=== PATIENT | female | born 1950 | race Caucasian/White ===

== ENCOUNTER → 2017-01-21 | Day surgery (SDC) | payer MEDICARE ==
[~2017-01-21] VITALS: Ht 170.1 cm; Wt 104.3 kg
[~2017-01-21] MED LIST: ALENDRONATE SOD70 M1 PO; AMLODIPINE BESYL5 MG PO; ATENOLOL100 M1 PO; LISINOPRIL40 MG PO; MASON NATURAL1000 IU PO; TYLENOL EXTRA500 M2 PO
--- NOTE | ~2017-01-21 | O ---
[place], [place] OPERATIVE NOTE NAME: TESFAYE SCHULZ UNIT #: [id number] ROOM: DOCTOR: KAYLA MENEZES MD BIRTHDATE: [birth year] DOS: 01/21/2017 PREOPERATIVE DIAGNOSIS: Cataract, right eye. POSTOPERATIVE DIAGNOSIS: Cataract, right eye. OPERATION: Extracapsular cataract extraction by phacoemulsification with posterior chamber intraocular lens implantation, right eye. ANESTHESIA: Monitored standby. OPERATIVE FINDINGS AND PROCEDURE: 2% Xylocaine topical anesthetic gel was applied to the eye in the preop area. The patient was taken to the operating room and prepped and draped in the standard fashion for sterile intraocular surgery. A time out procedure was performed verifying correct patient, correct site and corrects lens with Sofiya Menezes M.D. The operating microscope was swung into position and the lid speculum was inserted. Using a Sarah paracentesis blade, a paracentesis was made through clear cornea. Viscoelastic was used to fill the anterior chamber. Using a metal keratome a 2.4 mm self-sealing clear corneal cataract incision was made temporally at the limbus. Using a pre-bent 25 gauge cystotome needle, a standard continuous curvilinear capsulorrhexis was performed. The anterior capsule was removed with forceps. The lens nucleus was hydrodissected and phacoemulsified in the posterior chamber. Cortical material was removed with the irrigation aspiration hand piece and the posterior capsule was then polished with a curet under irrigation. The posterior chamber and capsular bag were filled with viscoelastic. A posterior chamber intraocular lens manufactured by: [employer], Model #[id number], and 22.5 diopters in strength were then inserted into the posterior chamber and within the capsular bag using the lens cartridge and injector system. Viscoelastic was removed using the irrigation aspiration handpiece. The anterior chamber was filled with balanced salt solution through the paracentesis. Both the paracentesis site and cataract incisions were hydrated with BSS and verified to be water-tight and self-sealing. Cefuroxime 1 mg/0.1 mL was injected into the anterior chamber through the paracentesis site. The incision checked to be water-tight using a Weck-Gisele sponge. The integrity of the cataract wound and ocular tension were checked. Lid speculum and drapes were removed. The patient was transferred from the operating room to the recovery room in satisfactory condition. [place], [place] OPERATIVE NOTE NAME: TESFAYE SCHULZ UNIT #: [id number] ROOM: DOCTOR: KAYLA MENEZES MD BIRTHDATE: [birth year] KAYLA MENEZES MD CM:OPRECORD:OPERATIVE NOTE 1351 1516 KAYLA MENEZES MD 01/21/17 1516 interface
[2017-01-21 10:10] VITALS: BP 170/88
[2017-01-21 11:24] VITALS: BP 150/80
[2017-01-21 11:39] VITALS: BP 132/92
[2017-01-21 11:54] VITALS: BP 131/69
== END ==
LOC: SDC 12-29 14:45
DX: H26.9 Unspecified cataract (principal); E03.9 Hypothyroidism, unspecified; I10 Essential (primary) hypertension; K21.9 Gastro-esophageal reflux disease without esophagitis; Z87.891 Personal history of nicotine dependence; Z96.653 Presence of artificial knee joint, bilateral; Z98.890 Other specified postprocedural states; E78.00 Pure hypercholesterolemia, unspecified

== ENCOUNTER → 2017-03-04 | Day surgery (SDC) | payer MEDICARE ==
[~2017-03-04] VITALS: Ht 170.1 cm; Wt 105.2 kg
--- NOTE | ~2017-03-04 | O ---
[place], [place] OPERATIVE NOTE NAME: TESFAYE SCHULZ UNIT #: [id number] ROOM: DOCTOR: KAYLA MENEZES MD BIRTHDATE: [birth year] DOS: 03/04/2017 PREOPERATIVE DIAGNOSIS: Cataract, left eye. POSTOPERATIVE DIAGNOSIS: Cataract, left eye. OPERATION: Extracapsular cataract extraction by phacoemulsification with posterior chamber intraocular lens implantation, left eye. ANESTHESIA: Monitored standby. OPERATIVE FINDINGS AND PROCEDURE: 2% Xylocaine topical anesthetic gel was applied to the eye in the preop area. The patient was taken to the operating room and prepped and draped in the standard fashion for sterile intraocular surgery. A time out procedure was performed verifying correct patient, correct site and corrects lens with Sofiya Menezes M.D. The operating microscope was swung into position and the lid speculum was inserted. Using a Sarah paracentesis blade, a paracentesis was made through clear cornea. Viscoelastic was used to fill the anterior chamber. Using a metal keratome a 2.4 mm self-sealing clear corneal cataract incision was made temporally at the limbus. Using a pre-bent 25 gauge cystotome needle, a standard continuous curvilinear capsulorrhexis was performed. The anterior capsule was removed with forceps. The lens nucleus was hydrodissected and phacoemulsified in the posterior chamber. Cortical material was removed with the irrigation aspiration hand piece and the posterior capsule was then polished with a curet under irrigation. The posterior chamber and capsular bag were filled with viscoelastic. A posterior chamber intraocular lens manufactured by: [employer], Model #[id number], and 21.5 diopters in strength were then inserted into the posterior chamber and within the capsular bag using the lens cartridge and injector system. Viscoelastic was removed using the irrigation aspiration handpiece. The anterior chamber was filled with balanced salt solution through the paracentesis. Both the paracentesis site and cataract incisions were hydrated with BSS and verified to be water-tight and self-sealing. Cefuroxime 1 mg/1 mL was injected into the anterior chamber through the paracentesis site. The incision checked to be water-tight using a Weck-Gisele sponge. The integrity of the cataract wound and ocular tension were checked. Lid speculum and drapes were removed. The patient was transferred from the operating room to the recovery room in satisfactory condition. [place], [place] OPERATIVE NOTE NAME: TESFAYE SCHULZ UNIT #: [id number] ROOM: DOCTOR: KAYLA MENEZES MD BIRTHDATE: [birth year] KAYLA MENEZES MD CM:OPRECORD:OPERATIVE NOTE 1522 1552 KAYLA MENEZES MD 03/04/17 1552 interface
[2017-03-04 14:12] VITALS: BP 144/75
[2017-03-04 15:15] VITALS: BP 172/92
[2017-03-04 15:30] VITALS: BP 164/88
[2017-03-04 15:44] VITALS: BP 177/90
== END | disposition home or self-care (01) ==
LOC: SDC 02-27 11:00
DX: H26.9 Unspecified cataract (principal); E07.89 Other specified disorders of thyroid; I10 Essential (primary) hypertension; K21.9 Gastro-esophageal reflux disease without esophagitis; K75.9 Inflammatory liver disease, unspecified; Z98.890 Other specified postprocedural states

== ENCOUNTER 2018-01-27 09:39 | Emergency (ER) | payer MEDICARE ==
[~2018-01-27] VITALS: Ht 172.7 cm; Wt 101.2 kg
== END 2018-01-27 11:54 | disposition home or self-care (01) ==
LOC: ED 09:39
DX: S80.01XA Contusion of right knee, initial encounter (principal); M25.562 Pain in left knee; Z96.652 Presence of left artificial knee joint; Z96.651 Presence of right artificial knee joint; Z79.899 Other long term (current) drug therapy; W01.0XXA Fall on same level from slipping, tripping and stumbling without subsequent striking against object, initial encounter; Y93.89 Activity, other specified; Y92.89 Other specified places as the place of occurrence of the external cause; Y99.8 Other external cause status

== ENCOUNTER → 2019-04-01 | Outpatient (CLI) | payer MEDICARE ==
[2019-04-01 13:50] LABS: BODY FLUID WBC 34575 /uL
[2019-04-01 13:53] LABS: BF LYMPHOCYTES 2 %; BF MONOCYTES 1 %; BF NEUTROPHILS 97 %
== END | disposition home or self-care (01) ==
LOC: LAB 10:51
PROVIDERS: Orthopaedic Surgery
DX: M25.422 Effusion, left elbow (principal)

== ENCOUNTER → 2020-04-11 | Outpatient (CLI) | payer MEDICARE ==
[2020-04-11 12:21] LABS: HEMATOCRIT 41.1 % (37.0-47.0); MEAN CORPUSCULAR HGB 26.8 pg (27.0-31.0); MEAN CORPUSCULAR HGB CONC 31.1 g/dl (33.0-37.0); MEAN PLATELET VOLUME 9.2 fl (9.6-12.3); RED BLOOD COUNT 4.78 10*6/uL (4.10-5.10); RED CELL DISTRI WIDTH 14.6 % (0-14.5)
[2020-04-11 12:48] LABS: ALBUMIN 3.1 gm/dl (3.1-4.5); ALKALINE PHOSPHATASE 186 U/L (45-117); BUN 15 mg/dl (7-24); CHLORIDE 108 mmol/L (98-107); CHOLESTEROL 127 mg/dL (<200); CPK 41 U/L (26-192); CREATININE 0.97 mg/dL (0.55-1.02); HDL CHOLESTEROL 48 mg/dl (40-60); LDL CHOLESTEROL 47 mg/dL (9-159); SGOT/AST 11 IU/L (3-35); SGPT/ALT 18 U/L (12-78); SODIUM 143 mmol/L (136-145); TOTAL PROTEIN 7.4 gm/dL (6.4-8.2); TRIGLYCERIDES 159 mg/dl (<150); VLDL CHOLESTEROL 32 mg/dL (6-40)
[2020-04-11 13:24] LABS: FREE T4 0.88 ng/dl (0.76-1.46)
[2020-04-12 08:08] LABS: HEP B CORE AB, IGM Negative (Negative); HEPATITIS B SURFACE AG Negative (Negative); HEPATITIS C VIRUS ANTIBODY <0.1 s/co (0.0-0.9)
== END | disposition home or self-care (01) ==
LOC: LAB 11:51
PROVIDERS: Family Medicine; ATTEND Nurse Practitioner Family
DX: R06.02 Shortness of breath (principal); I10 Essential (primary) hypertension; R10.9 Unspecified abdominal pain; R53.83 Other fatigue; R60.0 Localized edema; Z79.899 Other long term (current) drug therapy

== ENCOUNTER 2020-04-14 03:54 | Inpatient (IN) | payer MEDICARE ==
[2020-04-14] VITALS (8 sets, daily range): BP systolic 108–135; BP diastolic 40–73
[~2020-04-14] VITALS: Ht 170.1 cm; Wt 118.5 kg
--- NOTE | 2020-04-14 04:30 | NUR ---
No opden wounds noted when pt stood up for to take blood pressure.
[2020-04-14 04:43] LABS: BASO # 0.1 10*3/uL (0.0-0.1); BASO % 0.3 % (0.0-1.0); EOS # 0.2 10*3/uL (0.0-0.4); EOS % 1.1 % (1.0-4.0); HEMATOCRIT 39.4 % (37.0-47.0); LYMPH # 1.6 10*3/uL (1.3-4.4); LYMPH % 9.4 % (27.0-41.0); MEAN CELL VOLUME 84.7 fl (81.0-99.0); MEAN CORPUSCULAR HGB 26.7 pg (27.0-31.0); MEAN CORPUSCULAR HGB CONC 31.5 g/dl (33.0-37.0); MEAN PLATELET VOLUME 9.2 fl (9.6-12.3); MONO # 1.3 10*3/uL (0.1-1.0); MONO % 7.3 % (3.0-9.0); NEUT # 14.2 10*3/uL (2.3-7.9); NEUT % 81.6 % (47.0-73.0); PLATELET COUNT AUTOMATED 422 10*3/uL (130-400); RED BLOOD COUNT 4.65 10*6/uL (4.10-5.10); RED CELL DISTRI WIDTH 14.7 % (0-14.5); WHITE BLOOD COUNT 17.5 10*3/uL (4.8-10.8)
[2020-04-14 04:54] LABS: ACT PARTIAL THROMBO TIME 28.7 SECONDS (20.0-32.1)
[2020-04-14 05:02] LABS: ALBUMIN 3.2 gm/dl (3.1-4.5); ALKALINE PHOSPHATASE 175 U/L (45-117); BUN 17 mg/dl (7-24); CHLORIDE 106 mmol/L (98-107); CREATININE 1.19 mg/dL (0.55-1.02); LIPASE 428 U/L (73-393); SGOT/AST 10 IU/L (3-35); SGPT/ALT 16 U/L (12-78); SODIUM 140 mmol/L (136-145); TOTAL PROTEIN 7.6 gm/dL (6.4-8.2)
[2020-04-14 05:03] LABS: TROPONIN I < 0.015 ng/ml (<0.045)
--- NOTE | 2020-04-14 05:07 | NUR ---
Pt states she is unable to void at this time.
--- NOTE | 2020-04-14 05:11 | NUR ---
in to see pt.
--- NOTE | 2020-04-14 05:40 | NUR ---
Pt voided small amount of yellow cloudy urine.
[2020-04-14 05:51] LABS: BILIRUBIN Negative (Negative); BLOOD Negative (Negative); CLARITY Clear (Clear); COLOR Yellow (Yellow); GLUCOSE Negative (Negative); KETONE Negative (Negative); LEUKO ESTERASE Trace (Negative); NITRITE Negative (Negative); PH 6.5 (4.5-8.0)
[2020-04-14 06:05] LABS: RBC 0-2 rbc/hpf (0-2)
[2020-04-14 06:06] LABS: HYALINE CAST 0-2
--- NOTE | 2020-04-14 06:20 | NUR ---
stated pt she is going to stay at this time.
--- NOTE | 2020-04-14 06:36 | NUR ---
Family updated on pt status at this time.
--- NOTE | 2020-04-14 06:46 | NUR ---
Pt voided small amount of yellow urine at this time and nomi care given.
--- NOTE | 2020-04-14 07:06 | NUR ---
Transfer of care to Faviola casarez
--- NOTE | 2020-04-14 07:08 | NUR ---
REPORT TAKEN BY CRIS LANDRUM.
--- NOTE | 2020-04-14 07:34 | NUR ---
PATIENT PLACED ON BED MEADOWS. TOLERATED WELL. REPOSITIONED IN BED. NO VOICED COMPLAINTS AT THIS TIME. WILL CONTINUE TO MONITOR.
--- NOTE | 2020-04-14 09:50 | NUR ---
A 70YO FEMALE, admitted to , under the services of Dr. ARTI MCLAUGHLIN,JAYDE [place] with a diagnosis of LEUKOCYTOSIS/NEAR SYNCOPE. Chief complaint is DIZZINESS AND SLIGHT NAUSEA WITH STANDING, UNSTEADY ON FEET. Patient arrived via stretcher from ER. Monitor applied. Initial assessment completed. Vital signs taken and recorded. DR. ARTI MCLAUGHLIN,JAYDE [place] notified of admission to the unit. Orders received. See assessment for past medical history, medications and allergies. Patient and/or family oriented to unit. [facility] reviewed. Clothing/patient valuable form completed. OZZY SOUZA
[2020-04-14] MEDS ORDERED: KLOR-CON M2020 ME1 PO (10:18)
[2020-04-14] MEDS ORDERED: FUROSEMIDE40 MG PO (10:18)
[2020-04-14] MEDS ORDERED: NEURONTIN300 MG PO (10:19)
[2020-04-14] MEDS ORDERED: LIPITOR20 MG PO (10:19)
[2020-04-14] MEDS ORDERED: OMEPRAZOLE20 M2 PO (10:20)
[2020-04-14] MEDS ORDERED: OMEPRAZOLE MAGN20 MG PO (10:20)
--- NOTE | 2020-04-14 13:45 | NUR ---
OBTAINED ORTHOSTATIC BLOOD PRESSURES FOLLOWS: LYING BP 123/44 PULSE 81. SITTING BP 130/62 PULSE 88. PATIENT DENIED DIZZINESS WITH SITTING ON EDGE OF THE BED. STANDING BP 118/62 PULSE 94. PATIENT REPORTS DIZZINESS WITH STANDING, UNSTEADY ON FEET.
--- NOTE | 2020-04-14 21:54 | NUR ---
TYLENOL GIVEN PER ORDER FOR DISCOMFORT PER PT. "I TAKE TYLENOL BEFORE BED FOR DISCOMFORT". SEE MAR
--- NOTE | 2020-04-14 22:50 | NUR ---
Tylenol effective for generalized discomfort per pt.
[2020-04-15] VITALS: BP 121/58
--- NOTE | 2020-04-15 01:48 | NUR ---
2424 HR chart check completed.
[2020-04-15 06:25] LABS: BASO % 0.3 % (0.0-1.0); EOS # 0.2 10*3/uL (0.0-0.4); EOS % 2.4 % (1.0-4.0); LYMPH # 1.7 10*3/uL (1.3-4.4); LYMPH % 16.4 % (27.0-41.0); MEAN CELL VOLUME 86.1 fl (81.0-99.0); MEAN CORPUSCULAR HGB 26.6 pg (27.0-31.0); MEAN CORPUSCULAR HGB CONC 30.8 g/dl (33.0-37.0); MONO # 0.8 10*3/uL (0.1-1.0); MONO % 8.1 % (3.0-9.0); NEUT # 7.3 10*3/uL (2.3-7.9); NEUT % 72.5 % (47.0-73.0); PLATELET COUNT AUTOMATED 333 10*3/uL (130-400); RED BLOOD COUNT 4.18 10*6/uL (4.10-5.10); RED CELL DISTRI WIDTH 14.9 % (0-14.5); WHITE BLOOD COUNT 10.1 10*3/uL (4.8-10.8)
[2020-04-15 06:37] LABS: BUN 12 mg/dl (7-24); CHLORIDE 110 mmol/L (98-107); CREATININE 0.92 mg/dL (0.55-1.02); POTASSIUM 4.1 mmol/L (3.5-5.1); SODIUM 142 mmol/L (136-145)
[2020-04-15 08:00] VITALS: BP 128/64
[2020-04-15 12:00] VITALS: BP 138/68
[2020-04-15 16:00] VITALS: BP 144/56
--- NOTE | 2020-04-15 19:11 | NUR ---
MEDICATED WITH PRN PO TYLENOL FOR C/O GENERALIZED BODY AND BACK PAIN.
[2020-04-15 20:00] VITALS: BP 145/65
--- NOTE | 2020-04-15 20:00 | NUR ---
Patient resting quietly with no c/o discomfort. Respirations easy and regular. Vital signs stable. No overt distress. ANABEL YAO
--- NOTE | 2020-04-15 22:00 | NUR ---
Patient resting quietly with no c/o discomfort. Respirations easy and regular. Vital signs stable. No overt distress. ANABEL YAO
--- NOTE | 2020-04-15 23:31 | NUR ---
24 HR chart check completed.
[2020-04-16] VITALS: BP 140/71
--- NOTE | 2020-04-16 04:00 | NUR ---
Patient resting quietly with no c/o discomfort. Respirations easy and regular. Vital signs stable. No overt distress. ANABEL YAO
[2020-04-16 06:44] LABS: BASO # 0.1 10*3/uL (0.0-0.1); BASO % 0.6 % (0.0-1.0); EOS # 0.3 10*3/uL (0.0-0.4); EOS % 3.2 % (1.0-4.0); HEMATOCRIT 35.7 % (37.0-47.0); LYMPH # 1.5 10*3/uL (1.3-4.4); MEAN CELL VOLUME 86.2 fl (81.0-99.0); MEAN CORPUSCULAR HGB 26.8 pg (27.0-31.0); MEAN CORPUSCULAR HGB CONC 31.1 g/dl (33.0-37.0); MEAN PLATELET VOLUME 9.1 fl (9.6-12.3); MONO # 0.6 10*3/uL (0.1-1.0); MONO % 7.2 % (3.0-9.0); NEUT % 70.8 % (47.0-73.0); PLATELET COUNT AUTOMATED 343 10*3/uL (130-400); RED BLOOD COUNT 4.14 10*6/uL (4.10-5.10); RED CELL DISTRI WIDTH 14.9 % (0-14.5); WHITE BLOOD COUNT 8.5 10*3/uL (4.8-10.8)
[2020-04-16 08:00] VITALS: BP 155/62
--- NOTE | 2020-04-16 09:00 | NUR ---
Beveling Machine Operator in to talk to patient. Patient states lives at home alone with her family checking in on her. There are 0 steps in the home. There is a wheelchair ramp. Physician: Dr. William Barahona Pharmacy: [facility] Home health services: would like [facility] on discharge Patient's level of ADLs: MINIMAL ASSIST Patient has working utilities: yes DME: walker Follow-up physician's appointment after d/c: she prefers to make her own follow up appt upon discharge Does patient want to access PORTAL?: no Discharge plan discussed with patient. She lives at home alone with her family checking in on her. She states she is independent in her ADLs and ambulates with a walker. Discussed short term rehab vs home health care services. She is agreeable to either. She would like to work with therapy first to see what they suggest. She is unsure about a rehab center d/t COVID. When provided with a list of facilities she chose [facility]. When provided with a list of agencies she chose [facility]. Discharge plan undecided at this time. CM will continue to follow. She states her daughter will provide transportation on discharge. FLORENTIN MULLIGAN
--- NOTE | 2020-04-16 09:37 | NUR ---
PHYSICAL THERAPY PT amelia received and chart reviewed. Pt on commode and requests PT to come back at a later time. Will follow and attempt to see later this date. Boris Mera SPT Rosamaria Eddy PT
[2020-04-16 12:00] VITALS: BP 143/66
--- NOTE | 2020-04-16 12:30 | NUR ---
CARGO OPERATIONS AGENT IN TO SPEAK TO PATIENT. CARGO OPERATIONS AGENT SPOKE WITH THE PATIENT. PATIENT STATED HER OF 53 YEARS THIS PAST JUNE. PATIENT BECAME TEARFUL AND STATES SHE IS STILL UNABLE TO ACCEPT THAT HE IS GONE. PATIENT REPORTS SHE IS HAVING A HARD TIME ACCEPTING HIS . PATIENT STATED THAT SHE IS RELGIOUS, BUT HAS NOT ATTENDED [facility] SINCE HIS PASSING/COVID. PATIENT STATED THAT SHE HAS BEEN WATCHING [facility] SESSIONS ON TELEVISION. PATIENT REPORTS SHE READS HER BIBLE [employer]. PATIENT STATES HER CHILDREN ARE VERY SUPPORTIVE. PATIENT REPORTS SHE HAS NOT BEEN OUT OF THE HOUSE IN SOME TIME. PATIENT STATES THAT SHE IS WILLING TO TRY DIFFERENT GRIEF SUPPORT SYSTEMS. PATIENT STATES SHE IS WILLING TO REACH OUT TO HER PARACHUTE LINE TIER FROM HER [facility]. PATIENT STATED THAT DUE TO COVID SHE HAS CONCERNS WITH IN PERSON GROUPS. PATIENT ALSO STATED THAT DURING HER HUSBANDS ILLNESSES SHE JOIN A FACEBOOK GROUP FOR SUPPORT. CARGO OPERATIONS AGENT EXPLAINED THIS CARGO OPERATIONS AGENT WOULD FIND RESOURCES ON DIFFERENT FACEBOOK SUPPORT GROUPS. CARGO OPERATIONS AGENT WILL ALSO PROVIDE THE PATIENT WITH OTHER GRIEF SUPPORT INFORMATION. PATIENT MENTIONED SHE WISHED SHE HAD HER BIBLE HERE TO READ. CARGO OPERATIONS AGENT LOCATED A BIBLE FOR THE PATIENT AND PRESENTED IT TO HER. CARGO OPERATIONS AGENT TO GET RESOURCES AND WILL PROVIDE THEM TO THE PATIENT.
--- NOTE | 2020-04-16 13:30 | NUR ---
PHYSICAL THERAPY Physical Therapy evaluation completed on 5th floor with full evaluation to follow. Recommend physical therapy per plan of care and SNF pending progress w ambulation upon discharge. Thank you for this referral. Boris Mera SPT Rosamaria Eddy PT
--- NOTE | 2020-04-16 14:58 | NUR ---
CM in to see patient with Dr. Tran. Discussed short term rehab and she is agreeable. When provided with a list of facilities she chose [facility]. She states she does not want "[place]." ditch worker notified. Explained she would need to be in the hospital 3 inpatient days for Medicare. She verbalized an understanding.
--- NOTE | 2020-04-16 15:07 | NUR ---
CITY EDITOR FAXED REFERRAL TO [facility]. WILL NEED 3RD NIGHT STAY, PT EVAL, AND COVID SWAB.
[2020-04-16 16:00] VITALS: BP 166/71
[2020-04-16 20:00] VITALS: BP 144/70
[2020-04-17] VITALS: BP 117/62
[2020-04-17 06:18] LABS: BASO % 0.5 % (0.0-1.0); EOS # 0.3 10*3/uL (0.0-0.4); EOS % 3.2 % (1.0-4.0); HEMATOCRIT 34.6 % (37.0-47.0); LYMPH # 1.5 10*3/uL (1.3-4.4); LYMPH % 17.1 % (27.0-41.0); MEAN CELL VOLUME 85.6 fl (81.0-99.0); MEAN CORPUSCULAR HGB 27.2 pg (27.0-31.0); MEAN CORPUSCULAR HGB CONC 31.8 g/dl (33.0-37.0); MEAN PLATELET VOLUME 9.2 fl (9.6-12.3); MONO # 0.7 10*3/uL (0.1-1.0); MONO % 8.2 % (3.0-9.0); NEUT # 6.1 10*3/uL (2.3-7.9); NEUT % 70.7 % (47.0-73.0); PLATELET COUNT AUTOMATED 350 10*3/uL (130-400); RED BLOOD COUNT 4.04 10*6/uL (4.10-5.10); WHITE BLOOD COUNT 8.6 10*3/uL (4.8-10.8)
--- NOTE | 2020-04-17 07:46 | NUR ---
AWAITING ACCEPTANCE. CAMBERING MACHINE OPERATOR FAXED UPDATES TO [facility].
[2020-04-17 08:00] VITALS: BP 141/62
--- NOTE | 2020-04-17 08:55 | NUR ---
PT SITTING UP AT SIDE OF BED. TOLERATED ROUTINE MED WITH NO PROBLEM. NO C/O AT THIS TIME. CALL LIGHT IN REACH. SEE SHIFT ASSESSMENT.
--- NOTE | 2020-04-17 09:00 | NUR ---
CM in to see patient. No new needs or request at this time. She is sitting on the edge of her bed. When medically stable and her 3 night Medicare stay has been completed she can be discharged to [facility]. acid conditioning worker following.
[2020-04-17 12:00] VITALS: BP 143/84
[2020-04-17 15:48] VITALS: BP 151/71
--- NOTE | 2020-04-17 15:58 | NUR ---
PHYSICAL THERAPY TREATMENT TIME: IN 1454 - OUT 1510 15 MINUTES TOTAL Patient presented to therapy in sitting in bedside chair with no chair alarm attached or present. Patient gives informed consent for treatment. Patient was identified by name and ON WRISTBAND. Patient reports mild dizziness in standing and walking. Patient STS from bedside chair with SBA. Patient ambulated with Walker and CGA for 160' x 1 with 2 episodes of mild LOB due to dizziness. Patient was left in sitting in bedside chair with call light within reach. Patient 1:1 with this DESTINATION COORDINATOR for 15 minutes total. NITHYA MARIN DESTINATION COORDINATOR
--- NOTE | 2020-04-17 16:00 | NUR ---
PT SITTING UP IN RECLINER CHAIR. RESP-EASY AND REGULAR. NO C/O AT THIS TIME. CALL LIGHT IN REACH. SEE SHIFT ASSESSMENT.
--- NOTE | 2020-04-17 18:10 | NUR ---
PT SITTING UP IN CHAIR. TOLERATED ROUTINE MED WITH NO PROBLEM. CALL LIGHT IN REACH.
[2020-04-17 20:00] VITALS: BP 139/65
--- NOTE | 2020-04-17 20:52 | NUR ---
AAOX3. HEP LOCK INTACT TO RIGHT ANTECUBITAL; SITE ASYMPTOMATIC. PT. STATES THAT HER FEET & LEGS ARE SWOLLEN. LASIX & K+ BOTH ON HOLD DUE TO PT. BEING HYPOTENSIVE. NO DISTRESS NOTED; CALL LIGHT WITHIN REACH.
--- NOTE | 2020-04-17 20:56 | NUR ---
MEDICATED WITH TYLENOL FOR C/O FOOT PAIN RATED AN 8/10.
--- NOTE | 2020-04-17 21:15 | NUR ---
RESTING IN BED WITH EYES CLOSED; VOICES NO C/O AT THIS TIME. TYLENOL GIVEN EARLIER APPARENTLY EFFECTIVE. CALL LIGHT WITHIN REACH.
--- NOTE | 2020-04-18 02:00 | NUR ---
RESTING IN BED WITH EYES CLOSED. CALL LIGHT WITHIN REACH.
--- NOTE | 2020-04-18 06:00 | NUR ---
TOOK PO MEDICATIONS WITHOUT DIFFICULTY; VOICES NO C/O AT THIS TIME. CALL LIGHT WITHIN REACH.
--- NOTE | 2020-04-18 08:50 | NUR ---
PHYSICAL THERAPY treatment time: IN 8:12 AM 20 MINUTES Patient presented to therapy in sitting in bedside chair with no chair alarm present. PATIENT REPORTS PAIN IN THE THE BILATERAL FEET 6/10. Patient reports edema in the bilateral feet. Patient gives informed consent for treatment. Patient was identified by name and on wristband. Patient uses a Wh Walker. Patient had no wt bearing restrictions. Patient performed STS from EOB with SBA. PATIENT AMBULATED 100' X 1 with Wh Walker and CGA- SBA with no LOB or other difficulty. Patient then sat in chair and performed seated bilateral LE ther ex 2 x 10 reps each in all planes of movement for strengthening the LEs IN ORDER TO IMPROVE PATIENT'S funcxtional mobility. Patient performed LAQs, marches, heel/toe raises, and hip abduction. Patient then STS again with SBA . Patient performed ambulation with WITH wh Walker and SBA for 120' x 1. Patient was left in bedside chair wit hCall light within reach ands chair alarm not present. Patient gets up to use restroom by herself throughout the day using the wheeled walker by hereself. Patient was 1:[address] [facility] [address] JUDGE for 20 minutes total. NITHYA MARIN YOUTH COURT JUDGE
--- NOTE | 2020-04-18 09:00 | NUR ---
CM in to see patient. She is sitting up in her bedside chair. Discussed short term rehab. She states she would rather go home with home health care services. Discussed her dizziness and pain and swelling in her feet. She understands but is on the fence about rehab. Explained she is doing well here at the hospital and it probably wouldn't take her very long to get back on her feet from rehab. Discussed discharge planning with Dr. Tran. Explained patient was on the fence about rehab vs home with home health. He would like to keep her another day due to her dizziness. CM will continue to follow for any discharge planning needs.
--- NOTE | 2020-04-18 11:10 | NUR ---
HEATING EQUIPMENT REPAIRER IN TO SEE PATIENT. HEATING EQUIPMENT REPAIRER PROVIDED THE PATIENT WITH RESOURCES ON GRIEVING. HEATING EQUIPMENT REPAIRER EXPLAINED THE MATERIAL TO HER. PATIENT STATED THAT "I JUST WANT TO GO TO SLEEP AND NOT WAKE UP." PATIENT STATED THAT SHE THOUGHT SHE WOULD BE OKAY WITH HER PASSING BUT NOW SHE NOTICES THAT HER GRIEF IS NOT IMPROVING. HEATING EQUIPMENT REPAIRER ASKED HER IF SHE TALKED TO DR. CHI ABOUT HER INCREASING DEPRESSION. SHE STATED NO, SHE SPOKE WITH HER NURSE WHO ENCOURAGED HER TO DO SO BUT HAD NOT. PATIENT STATED SHE WOULD BE OPEN TO SEE IF ANY MEDICATIONS WOULD HELP HER. HEATING EQUIPMENT REPAIRER EXPLAINED THAT I WOULD SPEAK WITH SENIOR INSTRUCTOR FLORENTIN. PATIENT STATED THAT HER HUSBANDS HOSPICE COMPANY REACHED OUT TO HER, HOWEVER SHE STATED SHE WAS FINE AT THE TIME. PATIENT WAS AGREEABLE TO HAVE THIS HEATING EQUIPMENT REPAIRER REACH OUT TO [facility] TO SEE WHAT RESOURCES THEY WOULD BE ABLE TO PROVIDE THE PAIENT. HEATING EQUIPMENT REPAIRER SPOKE WITH SENIOR INSTRUCTOR FLORENTIN, WHO SPOKE WITH AND A WILLIAM EUCEDA CONSULT WAS MADE. HEATING EQUIPMENT REPAIRER REACHED OUT TO [facility] AND LEFT A MESSAGE ASKING FOR A RETURN CALL. HEATING EQUIPMENT REPAIRER TO FOLLOW.
[2020-04-18 12:00] VITALS: BP 151/70
--- NOTE | 2020-04-18 12:11 | NUR ---
[facility] NOTIFIED OF CONSULT FOR DISABILITY AIDE KINSEY RE: DEPRESSION.
[2020-04-18 16:00] VITALS: BP 154/65
--- NOTE | 2020-04-18 18:34 | NUR ---
LIDOCAINE CREAM APPLIED TO FEET FOR CHRONIC PAIN.
--- NOTE | 2020-04-18 19:30 | NUR ---
REPORT RECEIVED. PT SITTING AT SIDE OF BED PLAYING ON PHONE. VOICES NO COMPLAINTS. CALL LIGHT IN REACH
[2020-04-18 20:00] VITALS: BP 159/78
--- NOTE | 2020-04-18 21:00 | NUR ---
PT PLAYING ON PHONE
--- NOTE | 2020-04-18 23:00 | NUR ---
PT LYING IN BED WATCHING TV AT THIS TIME
[2020-04-19] VITALS: BP 145/62
--- NOTE | 2020-04-19 01:00 | NUR ---
PT ASLEEP AT THIS TIME.
--- NOTE | 2020-04-19 05:30 | NUR ---
IN TO SEE PT. MEDICATIONS GIVEN. NO COMPLAINTS. CALL LIGHT IN REACH
--- NOTE | 2020-04-19 07:58 | NUR ---
PHYSICAL THERAPY TREATMENT TIME: IN 07:42 AM - OUT 07:53 AM 21 MINUTES TOTAL Patient presented to therapy supine in bed with head of bed elevated and bed alarm not on. Patient reports no pain 0/10. Patient uses a Wh Walker. Patient has no wt bearing restrictions. Patient gives informed consent. Patient was identified by name and ON WRISTBAND. Patient has L Knee that hyperextends. Patient performed supine <> sittimg on EOB with SBA. Patient sat on EOB unassisted. Patient STS <> EOB with SBA. Patient ambulated the 1st gait with Wh Walker Clsoe Supervisiom for 150' x 1. Patient ambulated the 2nd gait with Close Supervision for 200' x 1. Patient had no LOB during gait and no LOB with 180 degree turms. Patient performed seated bilateral LE ther ex 2 x10 reps each in all planes of movement including LAQs, marches, heel/toe raises and hip abduction for strengrhening the LEs in order to improve patient's functional mobility. Patient was left in sitting in bedside chair wit monica martinez within reach. Patient was 1:1 with this MARKET INVESTIGATOR for 20 minutes. NITHYA MARIN oil plant operator
[2020-04-19 08:00] VITALS: BP 144/67
--- NOTE | 2020-04-19 09:00 | NUR ---
CM in to see patient. She is currently not in her room. Will follow up at a later time.
--- NOTE | 2020-04-19 09:57 | NUR ---
Discussed discharge planning with Dr. Tran. He states patient wants to go to [facility] as she is not comfortable going home because she is not steady on her feet.
[2020-04-19] MEDS ORDERED: METOPROLOL SUCC25 M2 PO (10:35)
[2020-04-19 12:00] VITALS: BP 146/65; BP 97/55
--- NOTE | 2020-04-19 12:44 | NUR ---
CM in to see patient. She is sitting up in her bedside chair eating lunch. Discussed [facility] vs home with home health. She remains agreeable to [facility]. Awaiting Yue Alves to see patient. Asked patient if she had transportation to [facility] and she states she did not. Will ask [facility] if they have transportation available today. pattern worker notified.
--- NOTE | 2020-04-19 14:16 | NUR ---
NURSE TO NURSE TO REPORT GIVEN.
--- NOTE | 2020-04-19 14:47 | NUR ---
EFFICIENCY MINER BLASTING RECEIVED DISCHARGE ORDER. EFFICIENCY MINER BLASTING SPOKE WITH LUCITA RICE. EFFICIENCY MINER BLASTING ARRANGED FOR [facility]SPORT THE PATIENT AT 3:15PM TODAY. EFFICIENCY MINER BLASTING TO FAX DISCHARGE ORDERS TO [facility]. EFFICIENCY MINER BLASTING LEFT MESSAGE EXPLAINING DISCHARGE/TRANSPORTATION ON PATIENTS ADALBERTO ROJAS VOICE MAIL.
--- NOTE | 2020-04-19 14:55 | NUR ---
Discharge instructions reviewed with patient/family. Patient receptive and verbalizes understanding. Follow-up care arranged. Written instructions given to patient/family. DWAYNE LITTLE
== END 2020-04-19 14:58 | disposition other institution (70) | DRG 312 ==
LOC: ED 03:54 → 5E 07:12 → EDHOLD 07:12 → 5E 08:32
PROVIDERS: Emergency Medicine Emergency Medical Services; ADMIT Internal Medicine; ATTEND Internal Medicine
DX: I95.1 Orthostatic hypotension (principal); Z68.41 Body mass index [BMI] 40.0-44.9, adult; E87.6 Hypokalemia; R62.7 Adult failure to thrive; E75.6 Lipid storage disorder, unspecified; Z20.828 Contact with and (suspected) exposure to other viral communicable diseases; D72.829 Elevated white blood cell count, unspecified; E05.90 Thyrotoxicosis, unspecified without thyrotoxic crisis or storm; I10 Essential (primary) hypertension; E78.2 Mixed hyperlipidemia; E66.01 Morbid (severe) obesity due to excess calories; E86.0 Dehydration; K21.00 Gastro-esophageal reflux disease with esophagitis, without bleeding; Z79.899 Other long term (current) drug therapy

== ENCOUNTER → 2020-05-29 | Outpatient (CLI) | payer MEDICARE ==
[~2020-05-29] MED LIST changes: +FUROSEMIDE40 MG PO; +KLOR-CON M2020 ME1 PO; +LIPITOR20 MG PO; +METOPROLOL SUCC25 M2 PO; +NEURONTIN300 MG PO; +OMEPRAZOLE MAGN20 MG PO; +OMEPRAZOLE20 M2 PO
== END | disposition home or self-care (01) ==
LOC: CARD 04-24 15:00
PROVIDERS: ATTEND Family Medicine
DX: I51.7 Cardiomegaly (principal); I35.8 Other nonrheumatic aortic valve disorders; I31.3 Pericardial effusion (noninflammatory)

== ENCOUNTER → 2020-12-24 | Outpatient (CLI) | payer MEDICARE, OTHER ==
[2020-12-24 11:41] LABS: HEMATOCRIT 40.5 % (37.0-47.0); MEAN CELL VOLUME 85.1 fl (81.0-99.0); MEAN CORPUSCULAR HGB 27.1 pg (27.0-31.0); MEAN CORPUSCULAR HGB CONC 31.9 g/dl (33.0-37.0); MEAN PLATELET VOLUME 9.1 fl (9.6-12.3); RED BLOOD COUNT 4.76 10*6/uL (4.10-5.10); RED CELL DISTRI WIDTH 16.1 % (0-14.5); WHITE BLOOD COUNT 8.4 10*3/uL (4.8-10.8)
[2020-12-24 12:14] LABS: ALBUMIN 3.5 gm/dl (3.1-4.5); BUN 17 mg/dl (7-24); CHLORIDE 108 mmol/L (98-107); CHOLESTEROL 171 mg/dL (<200); CREATININE 0.94 mg/dL (0.55-1.02); POTASSIUM 4.4 mmol/L (3.5-5.1); SGOT/AST 14 IU/L (3-35); SGPT/ALT 18 U/L (12-78); SODIUM 140 mmol/L (136-145)
[2020-12-24 12:16] LABS: ALKALINE PHOSPHATASE 114 U/L (45-117); CPK 32 U/L (26-192); LDL CHOLESTEROL 81 mg/dL (9-159); TOTAL PROTEIN 7.6 gm/dL (6.4-8.2); TRIGLYCERIDES 210 mg/dl (<150)
== END | disposition home or self-care (01) ==
LOC: LAB 11:05
PROVIDERS: ATTEND Nurse Practitioner Family
DX: I10 Essential (primary) hypertension (principal); E78.00 Pure hypercholesterolemia, unspecified; E55.9 Vitamin D deficiency, unspecified

== ENCOUNTER → 2021-01-22 | Outpatient (CLI) | payer MEDICARE, OTHER | END | disposition home or self-care (01) | LOC: RAD 01-17 14:00 | PROVIDERS: ATTEND Family Medicine | DX: Z13.820 Encounter for screening for osteoporosis (principal); M81.0 Age-related osteoporosis without current pathological fracture ==

== ENCOUNTER → 2021-04-12 | Outpatient (CLI) | payer MEDICARE, OTHER ==
[2021-04-12 12:02] LABS: HEMATOCRIT 40.7 % (37.0-47.0); MEAN CELL VOLUME 85.7 fl (81.0-99.0); MEAN CORPUSCULAR HGB 26.9 pg (27.0-31.0); MEAN CORPUSCULAR HGB CONC 31.4 g/dl (33.0-37.0); MEAN PLATELET VOLUME 9.6 fl (9.6-12.3); RED BLOOD COUNT 4.75 10*6/uL (4.10-5.10); WHITE BLOOD COUNT 10.9 10*3/uL (4.8-10.8)
[2021-04-12 12:24] LABS: BUN 15 mg/dl (7-24); CHLORIDE 108 mmol/L (98-107); POTASSIUM 3.9 mmol/L (3.5-5.1); SODIUM 141 mmol/L (136-145)
[2021-04-12 12:29] LABS: ALBUMIN 3.2 gm/dl (3.1-4.5); ALKALINE PHOSPHATASE 111 U/L (45-117); CHOLESTEROL 134 mg/dL (<200); CREATININE 0.85 mg/dL (0.55-1.02); LDL CHOLESTEROL 45 mg/dL (9-159); SGOT/AST 13 IU/L (3-35); SGPT/ALT 19 U/L (12-78); TOTAL PROTEIN 7.3 gm/dL (6.4-8.2); TRIGLYCERIDES 202 mg/dl (<150)
== END | disposition home or self-care (01) ==
LOC: LAB 11:25
PROVIDERS: ATTEND Family Medicine
DX: E55.9 Vitamin D deficiency, unspecified (principal); E78.00 Pure hypercholesterolemia, unspecified; Z79.899 Other long term (current) drug therapy

== ENCOUNTER → 2021-10-24 | Outpatient (CLI) | payer MEDICARE, OTHER ==
[2021-10-24 17:30] LABS: HEMATOCRIT 38.4 % (37.0-47.0); MEAN CELL VOLUME 83.3 fl (81.0-99.0); MEAN CORPUSCULAR HGB 26.7 pg (27.0-31.0); MEAN PLATELET VOLUME 8.9 fl (9.6-12.3); RED BLOOD COUNT 4.61 10*6/uL (4.10-5.10); RED CELL DISTRI WIDTH 16.1 % (0-14.5); WHITE BLOOD COUNT 10.4 10*3/uL (4.8-10.8)
[2021-10-24 17:58] LABS: ALKALINE PHOSPHATASE 112 U/L (45-117); BUN 15 mg/dl (7-24); CHLORIDE 109 mmol/L (98-107); CHOLESTEROL 142 mg/dL (<200); CPK 51 U/L (26-192); CREATININE 0.96 mg/dL (0.55-1.02); LDL CHOLESTEROL 59 mg/dL (9-159); SGOT/AST 11 IU/L (3-35); SGPT/ALT 19 U/L (12-78); SODIUM 143 mmol/L (136-145); TOTAL PROTEIN 7.5 gm/dL (6.4-8.2); TRIGLYCERIDES 192 mg/dl (<150)
== END | disposition home or self-care (01) ==
LOC: LAB 17:07
PROVIDERS: ATTEND Family Medicine
DX: E11.9 Type 2 diabetes mellitus without complications (principal); E78.00 Pure hypercholesterolemia, unspecified; E55.9 Vitamin D deficiency, unspecified

== ENCOUNTER → 2022-08-12 | Outpatient (CLI) | payer MEDICARE, OTHER | END | disposition home or self-care (01) | LOC: RAD 17:22 | PROVIDERS: ATTEND Nurse Practitioner | DX: M47.812 Spondylosis without myelopathy or radiculopathy, cervical region (principal); M48.02 Spinal stenosis, cervical region; M46.02 Spinal enthesopathy, cervical region ==

== ENCOUNTER → 2022-08-27 | Outpatient (CLI) | payer MEDICARE, OTHER | END | disposition home or self-care (01) | LOC: MAMMO 00:32 | PROVIDERS: ATTEND Nurse Practitioner | DX: Z12.31 Encounter for screening mammogram for malignant neoplasm of breast (principal); N64.9 Disorder of breast, unspecified ==

== ENCOUNTER → 2022-10-08 | Outpatient (CLI) | payer MEDICARE, OTHER | END | disposition home or self-care (01) | LOC: ORTHO 01:13 | PROVIDERS: ATTEND Orthopaedic Surgery | DX: M25.562 Pain in left knee (principal); Z96.652 Presence of left artificial knee joint ==

== ENCOUNTER → 2022-10-20 | Outpatient (CLI) | payer MEDICARE, OTHER | END | disposition home or self-care (01) | LOC: NM 10-17 10:00 | PROVIDERS: ATTEND Orthopaedic Surgery | DX: T84.093A Other mechanical complication of internal left knee prosthesis, initial encounter (principal); Y84.9 Medical procedure, unspecified as the cause of abnormal reaction of the patient, or of later complication, without mention of misadventure at the time of the procedure; Y92.89 Other specified places as the place of occurrence of the external cause ==

== ENCOUNTER → 2022-11-14 | Outpatient (CLI) | payer MEDICARE, OTHER ==
[2022-11-14 11:50] LABS: BASO # 0.1 10*3/uL (0.0-0.1); BASO % 0.7 % (0.0-1.0); EOS # 0.2 10*3/uL (0.0-0.4); LYMPH # 2.1 10*3/uL (1.3-4.4); LYMPH % 17.3 % (27.0-41.0); MEAN CELL VOLUME 80.3 fl (81.0-99.0); MEAN CORPUSCULAR HGB 25.5 pg (27.0-31.0); MEAN CORPUSCULAR HGB CONC 31.8 g/dl (33.0-37.0); MONO # 0.8 10*3/uL (0.1-1.0); MONO % 6.6 % (3.0-9.0); NEUT # 8.8 10*3/uL (2.3-7.9); NEUT % 73.2 % (47.0-73.0); PLATELET COUNT AUTOMATED 406 10*3/uL (130-400); RED BLOOD COUNT 4.98 10*6/uL (4.10-5.10); WHITE BLOOD COUNT 12.1 10*3/uL (4.8-10.8)
== END | disposition home or self-care (01) ==
LOC: LAB 11:34
PROVIDERS: ATTEND Orthopaedic Surgery
DX: T84.54XA Infection and inflammatory reaction due to internal left knee prosthesis, initial encounter (principal)

== ENCOUNTER → 2023-04-30 | Day surgery (SDC) | payer MEDICARE, OTHER ==
[2023-04-27 16:12] LABS: BASO # 0.1 10*3/uL (0.0-0.1); BASO % 0.9 % (0.0-1.0); EOS # 0.3 10*3/uL (0.0-0.4); EOS % 2.2 % (1.0-4.0); HEMATOCRIT 39.4 % (37.0-47.0); LYMPH # 2.8 10*3/uL (1.3-4.4); LYMPH % 21.4 % (27.0-41.0); MEAN CELL VOLUME 79.1 fl (81.0-99.0); MEAN CORPUSCULAR HGB 23.9 pg (27.0-31.0); MEAN CORPUSCULAR HGB CONC 30.2 g/dl (33.0-37.0); MEAN PLATELET VOLUME 9.3 fl (9.6-12.3); MONO % 7.4 % (3.0-9.0); NEUT # 8.8 10*3/uL (2.3-7.9); NEUT % 67.8 % (47.0-73.0); PLATELET COUNT AUTOMATED 444 10*3/uL (130-400); RED BLOOD COUNT 4.98 10*6/uL (4.10-5.10); RED CELL DISTRI WIDTH 17.2 % (0-14.5)
[2023-04-27 16:13] LABS: BILIRUBIN Negative (Negative); BLOOD Negative (Negative); CLARITY Clear (Clear); COLOR Yellow (Yellow); GLUCOSE Negative (Negative); KETONE Negative (Negative); LEUKO ESTERASE 1+ (Negative); NITRITE Negative (Negative); UROBILINOGEN 0.2 E.U./dl (0.0-1.0)
[2023-04-27 16:33] LABS: BACTERIA 1+; WBC 16-20 wbc/hpf (0-5)
[2023-04-27 16:36] LABS: ALKALINE PHOSPHATASE 126 U/L (46-116); BUN 14 mg/dl (9-23); CHLORIDE 105 mmol/L (98-107); POTASSIUM 3.6 mmol/L (3.4-5.1); SGPT/ALT 8 U/L (5-49); TOTAL PROTEIN 7.6 gm/dL (6.0-8.0)
[~2023-04-30] VITALS: Ht 170.1 cm; Wt 113.4 kg
[~2023-04-30] MED LIST changes: +CLARITIN10 MG PO; +CYMBALTA60 MG PO; +LEVOTHYROXINE112 MC1 PO; +LISINOPRIL30 MG PO; +MACRODANTIN100 M1 PO; +OXYBUTYNIN5 MG PO; +POTASSIUM99 M7 PO; +PROTONIX TR40 MG PO; +VITAMIN D325 MCG PO
== END | disposition home or self-care (01) ==
LOC: SDC 04-27 14:00
PROVIDERS: ATTEND Orthopaedic Surgery
DX: T84.093A Other mechanical complication of internal left knee prosthesis, initial encounter (principal); Z53.8 Procedure and treatment not carried out for other reasons; I25.2 Old myocardial infarction; I50.9 Heart failure, unspecified; X58.XXXA Exposure to other specified factors, initial encounter

== ENCOUNTER → 2023-07-27 | Outpatient (CLI) | payer MEDICARE, OTHER | LOC: CT 01:08 | PROVIDERS: ATTEND Nurse Practitioner | DX: N28.1 Cyst of kidney, acquired (principal); R10.13 Epigastric pain; Z90.49 Acquired absence of other specified parts of digestive tract ==

== ENCOUNTER → 2023-09-14 | Outpatient (CLI) | payer MEDICARE, OTHER | END | disposition home or self-care (01) | LOC: CT 01:23 | PROVIDERS: ATTEND Nurse Practitioner | DX: R91.1 Solitary pulmonary nodule (principal); J98.11 Atelectasis; F17.210 Nicotine dependence, cigarettes, uncomplicated; M19.012 Primary osteoarthritis, left shoulder; M19.011 Primary osteoarthritis, right shoulder; M25.412 Effusion, left shoulder; Z90.49 Acquired absence of other specified parts of digestive tract ==

== ENCOUNTER → 2023-10-19 | Outpatient (CLI) | payer MEDICARE, OTHER | END | disposition home or self-care (01) | LOC: RAD 11:06 | PROVIDERS: ATTEND Orthopaedic Surgery | DX: M25.562 Pain in left knee (principal) ==

== ENCOUNTER → 2023-11-17 | Outpatient (CLI) | payer MEDICARE, OTHER ==
[~2023-11-17] VITALS: Ht 162.5 cm; Wt 114.3 kg
[~2023-11-17] MED LIST changes: +Lactated Ringer's Solution 1,000 ML IV SCH; +Midazolam Hydrochloride 2 MG/2 ML VIAL IV ONE; +TOPROL XL25 MG PO; +TRANEXAMIC ACID IN NACL,ISO-OS 100 ML IV ONE; +ceFAZolin sodium 2GM/20ML IV ONE
[2023-11-17 13:56] LABS: BASO # 0.1 10*3/uL (0.0-0.1); BASO % 0.7 % (0.0-1.0); EOS # 0.4 10*3/uL (0.0-0.4); EOS % 3.2 % (1.0-4.0); HEMATOCRIT 37.7 % (37.0-47.0); LYMPH # 2.4 10*3/uL (1.3-4.4); LYMPH % 17.6 % (27.0-41.0); MEAN CELL VOLUME 79.9 fl (81.0-99.0); MEAN CORPUSCULAR HGB 24.2 pg (27.0-31.0); MEAN CORPUSCULAR HGB CONC 30.2 g/dl (33.0-37.0); MEAN PLATELET VOLUME 9.1 fl (9.6-12.3); MONO # 0.8 10*3/uL (0.1-1.0); MONO % 6.1 % (3.0-9.0); NEUT # 9.7 10*3/uL (2.3-7.9); PLATELET COUNT AUTOMATED 450 10*3/uL (130-400); RED BLOOD COUNT 4.72 10*6/uL (4.10-5.10); RED CELL DISTRI WIDTH 19.1 % (0-14.5); WHITE BLOOD COUNT 13.5 10*3/uL (4.8-10.8)
[2023-11-17 14:00] LABS: BILIRUBIN Negative (Negative); BLOOD Negative (Negative); CLARITY Cloudy (Clear); COLOR Yellow (Yellow); GLUCOSE Negative (Negative); KETONE Negative (Negative); LEUKO ESTERASE 3+ (Negative); NITRITE Positive (Negative); PH 7.5 (4.5-8.0); SPECIFIC GRAVITY 1.015 (1.001-1.030); UROBILINOGEN 0.2 E.U./dl (0.0-1.0)
[2023-11-17 14:23] LABS: ALKALINE PHOSPHATASE 112 U/L (46-116); BUN 14 mg/dl (9-23); CHLORIDE 104 mmol/L (98-107); SGPT/ALT 8 U/L (5-49); TOTAL PROTEIN 7.1 gm/dL (6.0-8.0)
[2023-11-17 14:49] LABS: BACTERIA 2+; WBC 51-100 wbc/hpf (0-5)
[2023-11-19 07:34] LABS: BILIRUBIN Negative (Negative); BLOOD Negative (Negative); CLARITY Cloudy (Clear); COLOR Yellow (Yellow); GLUCOSE Negative (Negative); KETONE Negative (Negative); LEUKO ESTERASE 2+ (Negative); NITRITE Negative (Negative); PH 7.5 (4.5-8.0); RBC 0-2 rbc/hpf (0-2); UROBILINOGEN 0.2 E.U./dl (0.0-1.0)
== END ==
LOC: SDC 11-12 08:30 → LAB 01:52 → SDC 13:15 → EDSTATUS 11-19 13:15
PROVIDERS: ATTEND Orthopaedic Surgery
DX: Z01.818 Encounter for other preprocedural examination (principal); T84.093A Other mechanical complication of internal left knee prosthesis, initial encounter; X58.XXXA Exposure to other specified factors, initial encounter

== ENCOUNTER → 2024-03-31 | Outpatient (CLI) | payer MEDICARE, OTHER ==
[~2024-03-31] MED LIST changes: -Lactated Ringer's Solution 1,000 ML IV SCH; -Midazolam Hydrochloride 2 MG/2 ML VIAL IV ONE; -TRANEXAMIC ACID IN NACL,ISO-OS 100 ML IV ONE; -ceFAZolin sodium 2GM/20ML IV ONE
== END | disposition home or self-care (01) ==
LOC: RAD 13:38
PROVIDERS: ATTEND Nurse Practitioner
DX: R06.02 Shortness of breath (principal); R05.9 Cough, unspecified

== ENCOUNTER 2024-05-10 04:56 | Inpatient (IN) | payer MEDICARE, OTHER ==
[2024-05-06 15:11] LABS: BASO # 0.1 10*3/uL (0.0-0.1); BASO % 0.5 % (0.0-1.0); EOS # 0.2 10*3/uL (0.0-0.4); EOS % 1.5 % (1.0-4.0); HEMATOCRIT 44.1 % (37.0-47.0); MEAN CELL VOLUME 89.6 fl (81.0-99.0); MEAN CORPUSCULAR HGB 28.5 pg (27.0-31.0); MEAN CORPUSCULAR HGB CONC 31.7 g/dl (33.0-37.0); MEAN PLATELET VOLUME 9.5 fl (9.6-12.3); MONO # 0.8 10*3/uL (0.1-1.0); MONO % 6.4 % (3.0-9.0); NEUT # 8.2 10*3/uL (2.3-7.9); PLATELET COUNT AUTOMATED 387 10*3/uL (130-400); RED BLOOD COUNT 4.92 10*6/uL (4.10-5.10); RED CELL DISTRI WIDTH 15.9 % (0-14.5); WHITE BLOOD COUNT 11.9 10*3/uL (4.8-10.8)
[2024-05-06 15:20] LABS: BILIRUBIN Negative (Negative); BLOOD Negative (Negative); CLARITY Clear (Clear); COLOR Yellow (Yellow); GLUCOSE Negative (Negative); KETONE Trace (Negative); LEUKO ESTERASE Negative (Negative); NITRITE Positive (Negative); PH 5.5 (4.5-8.0)
[2024-05-06 15:33] LABS: ALKALINE PHOSPHATASE 120 U/L (46-116); BUN 11 mg/dl (9-23); CHLORIDE 105 mmol/L (98-107); POTASSIUM 3.9 mmol/L (3.4-5.1); SGPT/ALT 10 U/L (5-49)
[2024-05-06 15:35] LABS: BACTERIA 4+
[2024-05-10] VITALS (9 sets, daily range): BP systolic 125–152; BP diastolic 58–79
[~2024-05-10] VITALS: Ht 170.1 cm; Wt 120.2 kg
[2024-05-10] MEDS ORDERED: Lactated Ringer's Solution 1,000 ML IV ONE ×3 (10:05→12:14)
[2024-05-10] MEDS ORDERED: Midazolam Hydrochloride 2 MG/2 ML VIAL IV ONE (10:05)
[2024-05-10] MEDS ORDERED: VANCOMYCIN/WATER FOR INJ (PEG) 150 ML IV ONE (10:05)
[2024-05-10] MEDS ORDERED: TRANEXAMIC ACID IN NACL,ISO-OS 100 ML IV ONE ×2 (10:05→10:36)
[2024-05-10] MEDS ORDERED: Ondansetron Hydrochloride 4 MG/2 ML VIAL IV PRN (10:10)
[2024-05-10] MEDS ORDERED: Acetaminophen/Oxycodone 5 MG/325 MG TABLET PO PRN (10:10)
[2024-05-10] MEDS ORDERED: MORPHINE Sulfate 4 MG IV PRN (10:15)
[2024-05-10] MEDS ORDERED: Midazolam Hydrochloride 2 MG/2 ML VIAL ONE (10:18)
[2024-05-10] MEDS ORDERED: Ropivacaine Hydrochloride 5 MG/ML 20 ML AMP IJ ONE (10:24)
[2024-05-10] MEDS ORDERED: DEXAMETHASONE SODIUM PHOSP/PRESERVATIVE FREE 10 MG/ML VIAL ONE (10:24)
[2024-05-10] MEDS ORDERED: MORPHINE Sulfate 2 MG/ML SYR IV PRN ×2 (10:40→13:35)
[2024-05-10] MEDS ORDERED: Bupivacaine Hydrochloride/Ep2 30 ML VIAL ONE (10:41)
[2024-05-10] MEDS ORDERED: ACETAMINOPHEN 100 ML IV ONE (11:04)
[2024-05-10] MEDS ORDERED: ePHEDrine Sulfate 25 MG/5 ML SYRINGE IV ONE (13:40)
[2024-05-10] MEDS ORDERED: Ondansetron Hydrochloride 4 MG/2 ML VIAL IV ONE (13:40)
[2024-05-10] MEDS ORDERED: SEVOFLURANE 250 ML BOT INH ONE (13:40)
[2024-05-10] MEDS ORDERED: Dexamethasone Sodium Phospha 4 MG/ML VIAL IV ONE (13:40)
[2024-05-10] MEDS ORDERED: Ketorolac Tromethamine 30 MG/ML VIAL IV ONE (13:40)
[2024-05-10] MEDS ORDERED: fentaNYL CITRATE 100 MCG/2 ML VIAL IV ONE (13:40)
[2024-05-10] MEDS ORDERED: Lidocaine Hydrochloride 5 ML VIAL IV ONE (13:40)
[2024-05-10] MEDS ORDERED: ROCURONIUM BROMIDE 50 MG/5 ML SYRINGE IV ONE (13:40)
[2024-05-10] MEDS ORDERED: PROPOFOL 200 MG/20 ML VIAL IV ONE (13:40)
[2024-05-10] MEDS ORDERED: Ceftriaxone Sodium 1 GM in SYRINGE INFUSION 10 ML IV SCH (16:00)
[2024-05-10 17:50] LABS: BILIRUBIN Negative (Negative); BLOOD Negative (Negative); CLARITY Clear (Clear); COLOR Yellow (Yellow); GLUCOSE Negative (Negative); KETONE Trace (Negative); LEUKO ESTERASE 2+ (Negative); NITRITE Positive (Negative); UROBILINOGEN 0.2 E.U./dl (0.0-1.0)
[2024-05-10] MEDS ORDERED: OMEPRAZOLE 20 MG CAP PO SCH (18:00)
[2024-05-10 18:04] LABS: RBC 0-2 rbc/hpf (0-2); WBC TNTC wbc/hpf (0-5)
[2024-05-10] MEDS ORDERED: METOPROLOL SUCCINATE XR 25 MG TAB PO SCH (22:00)
[2024-05-10] MEDS ORDERED: VANCOMYCIN/WATER FOR INJ (PEG) 150 ML IV SCH (22:00)
[2024-05-11] VITALS: BP 138/67
[2024-05-11 05:24] LABS: ALKALINE PHOSPHATASE 99 U/L (46-116); BUN 12 mg/dl (9-23); CHLORIDE 105 mmol/L (98-107); CHOLESTEROL 161 mg/dL (<200); FREE T4 1.51 ng/dl (0.89-1.76); LDL CHOLESTEROL 97 mg/dL (9-159); SGPT/ALT 21 U/L (5-49); TOTAL PROTEIN 6.2 gm/dL (6.0-8.0); TRIGLYCERIDES 77 mg/dl (<150)
[2024-05-11] MEDS ORDERED: Levothyroxine Sodium 112 MCG TAB PO SCH (06:00)
[2024-05-11 06:20] LABS: BASO % 0.1 % (0.0-1.0); HEMATOCRIT 40.3 % (37.0-47.0); MEAN CELL VOLUME 90.4 fl (81.0-99.0); MEAN CORPUSCULAR HGB 28.7 pg (27.0-31.0); MEAN CORPUSCULAR HGB CONC 31.8 g/dl (33.0-37.0); MEAN PLATELET VOLUME 9.7 fl (9.6-12.3); MONO % 5.6 % (3.0-9.0); NEUT # 15.1 10*3/uL (2.3-7.9); NEUT % 84.8 % (47.0-73.0); PLATELET COUNT AUTOMATED 368 10*3/uL (130-400); RED BLOOD COUNT 4.46 10*6/uL (4.10-5.10); RED CELL DISTRI WIDTH 15.7 % (0-14.5); WHITE BLOOD COUNT 17.8 10*3/uL (4.8-10.8)
[2024-05-11] MEDS ORDERED: SODIUM CHLORIDE 0.9% 1,000 ML IV SCH (07:35)
[2024-05-11 08:00] VITALS: BP 110/47
[2024-05-11 08:04] LABS: VITAMIN D, 25-HYDROXY 41.4 ng/mL (30-100)
[2024-05-11] MEDS ORDERED: Cholecalciferol 2,000 UNIT TABLET (50 MCG) PO SCH (10:00)
[2024-05-11] MEDS ORDERED: LISINOPRIL 10 MG TAB PO SCH (10:00)
[2024-05-11] MEDS ORDERED: Duloxetine Hydrochloride 60 MG CAP PO SCH (10:00)
[2024-05-11] MEDS ORDERED: LORATADINE 10 MG TAB PO SCH (10:00)
[2024-05-11] MEDS ORDERED: ASPIRIN ENTERIC COATED 81 MG TAB PO SCH (10:00)
[2024-05-11] MEDS ORDERED: Oxybutynin Chloride 5 MG TAB PO SCH (10:00)
[2024-05-11 12:00] VITALS: BP 120/50
[2024-05-11 16:00] VITALS: BP 136/59
[2024-05-11 20:00] VITALS: BP 158/79
[2024-05-12] VITALS: BP 134/80
[2024-05-12 05:48] LABS: BUN 17 mg/dl (9-23); CHLORIDE 108 mmol/L (98-107); POTASSIUM 3.9 mmol/L (3.4-5.1)
[2024-05-12 06:06] LABS: BASO # 0.1 10*3/uL (0.0-0.1); BASO % 0.5 % (0.0-1.0); EOS # 0.1 10*3/uL (0.0-0.4); EOS % 0.7 % (1.0-4.0); HEMATOCRIT 40.1 % (37.0-47.0); MEAN CELL VOLUME 90.7 fl (81.0-99.0); MEAN CORPUSCULAR HGB 28.7 pg (27.0-31.0); MEAN CORPUSCULAR HGB CONC 31.7 g/dl (33.0-37.0); MEAN PLATELET VOLUME 9.8 fl (9.6-12.3); MONO # 1.3 10*3/uL (0.1-1.0); MONO % 9.8 % (3.0-9.0); NEUT # 9.4 10*3/uL (2.3-7.9); NEUT % 72.4 % (47.0-73.0); PLATELET COUNT AUTOMATED 334 10*3/uL (130-400); RED BLOOD COUNT 4.42 10*6/uL (4.10-5.10)
[2024-05-12 08:44] VITALS: BP 134/68
[2024-05-12] MEDS ORDERED: MORPHINE Sulfate 2 MG/ML SYR IV PRN (11:18)
[2024-05-12] MEDS ORDERED: Acetaminophen/Oxycodone Hydr 7.5 MG/325 MG TABLET PO PRN (11:20)
[2024-05-12 12:00] VITALS: BP 136/80
[2024-05-12] MEDS ORDERED: Ketorolac Tromethamine 15 MG/ML VIAL IV SCH (14:00)
[2024-05-12 16:00] VITALS: BP 137/59
[2024-05-12 20:00] VITALS: BP 144/62
[2024-05-13] VITALS: BP 139/61
[2024-05-13 06:22] LABS: BASO # 0.1 10*3/uL (0.0-0.1); BASO % 0.5 % (0.0-1.0); EOS # 0.2 10*3/uL (0.0-0.4); EOS % 1.7 % (1.0-4.0); HEMATOCRIT 40.4 % (37.0-47.0); MEAN CELL VOLUME 93.3 fl (81.0-99.0); MEAN CORPUSCULAR HGB 28.6 pg (27.0-31.0); MEAN CORPUSCULAR HGB CONC 30.7 g/dl (33.0-37.0); MEAN PLATELET VOLUME 9.6 fl (9.6-12.3); MONO # 1.3 10*3/uL (0.1-1.0); MONO % 9.9 % (3.0-9.0); NEUT # 9.5 10*3/uL (2.3-7.9); NEUT % 71.3 % (47.0-73.0); PLATELET COUNT AUTOMATED 320 10*3/uL (130-400); RED BLOOD COUNT 4.33 10*6/uL (4.10-5.10); RED CELL DISTRI WIDTH 15.9 % (0-14.5); WHITE BLOOD COUNT 13.2 10*3/uL (4.8-10.8)
[2024-05-13 06:28] LABS: POTASSIUM 4.9 mmol/L (3.4-5.1)
[2024-05-13 08:00] VITALS: BP 118/76
[2024-05-13 12:00] VITALS: BP 145/71
[2024-05-13] MEDS ORDERED: Dicyclomine Hydrochloride 20 MG/10 ML OSYR PO STA (13:45)
[2024-05-13] MEDS ORDERED: Lidocaine Hydrochloride 15 ML UDC PO STA (13:45)
[2024-05-13] MEDS ORDERED: MG-AL HYDROXIDE/SIMETICONE 30 ML UDC PO STA (13:45)
[2024-05-13] MEDS ORDERED: Acetaminophen/Oxycodone Hydr 7.5 MG/325 MG TABLET PO PRN (14:59)
[2024-05-13 16:00] VITALS: BP 137/44
[2024-05-13 20:00] VITALS: BP 131/46
[2024-05-14] VITALS: BP 126/46
[2024-05-14 05:42] LABS: BUN 17 mg/dl (9-23); CHLORIDE 105 mmol/L (98-107)
[2024-05-14 06:37] LABS: BASO # 0.1 10*3/uL (0.0-0.1); BASO % 0.5 % (0.0-1.0); EOS # 0.3 10*3/uL (0.0-0.4); EOS % 2.6 % (1.0-4.0); HEMATOCRIT 37.9 % (37.0-47.0); MEAN CELL VOLUME 91.5 fl (81.0-99.0); MEAN CORPUSCULAR HGB CONC 30.6 g/dl (33.0-37.0); MONO # 0.9 10*3/uL (0.1-1.0); MONO % 7.4 % (3.0-9.0); NEUT % 67.9 % (47.0-73.0); PLATELET COUNT AUTOMATED 294 10*3/uL (130-400); RED BLOOD COUNT 4.14 10*6/uL (4.10-5.10); RED CELL DISTRI WIDTH 15.6 % (0-14.5); WHITE BLOOD COUNT 11.8 10*3/uL (4.8-10.8)
[2024-05-14 08:00] VITALS: BP 138/62
[2024-05-14 12:00] VITALS: BP 142/64
[2024-05-14] MEDS ORDERED: Meclizine Hydrochloride 25 MG TAB PO SCH (14:50)
[2024-05-14 16:00] VITALS: BP 158/77
[2024-05-14 20:00] VITALS: BP 152/53
[2024-05-14] MEDS ORDERED: ACETAMINOPHEN 325 MG TAB PO PRN (22:15)
[2024-05-15] VITALS: BP 143/56
[2024-05-15 05:49] LABS: BUN 14 mg/dl (9-23); CHLORIDE 103 mmol/L (98-107); POTASSIUM 4.1 mmol/L (3.4-5.1)
[2024-05-15 06:07] LABS: BASO # 0.1 10*3/uL (0.0-0.1); BASO % 0.6 % (0.0-1.0); EOS # 0.3 10*3/uL (0.0-0.4); EOS % 2.6 % (1.0-4.0); HEMATOCRIT 36.7 % (37.0-47.0); MEAN CORPUSCULAR HGB 28.6 pg (27.0-31.0); MEAN CORPUSCULAR HGB CONC 31.1 g/dl (33.0-37.0); MONO # 1.1 10*3/uL (0.1-1.0); MONO % 8.7 % (3.0-9.0); NEUT % 66.5 % (47.0-73.0); PLATELET COUNT AUTOMATED 345 10*3/uL (130-400); RED BLOOD COUNT 3.99 10*6/uL (4.10-5.10); RED CELL DISTRI WIDTH 15.2 % (0-14.5)
[2024-05-15 08:00] VITALS: BP 150/71
[2024-05-15 12:00] VITALS: BP 144/51
[2024-05-15] MEDS ORDERED: Bactroban Oint22 GM T (12:39)
[2024-05-15] MEDS ORDERED: MECLIZINE HCL25 M2 PO (12:39)
[2024-05-15] MEDS ORDERED: ASPIRIN ADULT L81 M2 PO (12:39)
[2024-05-15 16:00] VITALS: BP 147/57
[2024-05-15] MEDS ORDERED: LEVOFLOXACIN 750 MG TAB PO SCH (18:00)
[2024-05-15 20:00] VITALS: BP 148/77
[2024-05-16] VITALS: BP 144/54
[2024-05-16 05:37] LABS: BUN 15 mg/dl (9-23); CHLORIDE 104 mmol/L (98-107); POTASSIUM 3.9 mmol/L (3.4-5.1)
[2024-05-16 06:28] LABS: BASO # 0.1 10*3/uL (0.0-0.1); BASO % 0.6 % (0.0-1.0); EOS # 0.3 10*3/uL (0.0-0.4); EOS % 2.6 % (1.0-4.0); HEMATOCRIT 37.6 % (37.0-47.0); MEAN CELL VOLUME 89.7 fl (81.0-99.0); MEAN CORPUSCULAR HGB 28.6 pg (27.0-31.0); MEAN CORPUSCULAR HGB CONC 31.9 g/dl (33.0-37.0); MEAN PLATELET VOLUME 9.8 fl (9.6-12.3); MONO # 1.1 10*3/uL (0.1-1.0); NEUT # 8.4 10*3/uL (2.3-7.9); NEUT % 68.6 % (47.0-73.0); PLATELET COUNT AUTOMATED 368 10*3/uL (130-400); RED BLOOD COUNT 4.19 10*6/uL (4.10-5.10); RED CELL DISTRI WIDTH 15.2 % (0-14.5); WHITE BLOOD COUNT 12.3 10*3/uL (4.8-10.8)
[2024-05-16 08:00] VITALS: BP 134/70
[2024-05-16 11:51] VITALS: BP 142/72
[2024-05-16 16:00] VITALS: BP 132/55
[2024-05-16 20:00] VITALS: BP 114/47
[2024-05-16] MEDS ORDERED: LEVOFLOXACIN750 M2 PO (23:57)
[2024-05-17] VITALS: BP 134/41
[2024-05-17 06:45] LABS: BASO # 0.1 10*3/uL (0.0-0.1); BASO % 0.5 % (0.0-1.0); EOS # 0.4 10*3/uL (0.0-0.4); EOS % 3.6 % (1.0-4.0); HEMATOCRIT 37.8 % (37.0-47.0); MEAN CELL VOLUME 91.7 fl (81.0-99.0); MEAN CORPUSCULAR HGB 28.2 pg (27.0-31.0); MEAN CORPUSCULAR HGB CONC 30.7 g/dl (33.0-37.0); MEAN PLATELET VOLUME 9.7 fl (9.6-12.3); MONO % 9.3 % (3.0-9.0); NEUT # 7.3 10*3/uL (2.3-7.9); NEUT % 66.4 % (47.0-73.0); PLATELET COUNT AUTOMATED 384 10*3/uL (130-400); RED BLOOD COUNT 4.12 10*6/uL (4.10-5.10); RED CELL DISTRI WIDTH 14.9 % (0-14.5)
[2024-05-17 07:02] LABS: BUN 16 mg/dl (9-23); CHLORIDE 104 mmol/L (98-107); POTASSIUM 3.9 mmol/L (3.4-5.1)
[2024-05-17 08:00] VITALS: BP 147/62
[2024-05-17 12:00] VITALS: BP 151/78
== END 2024-05-17 15:09 | DRG 854 ==
LOC: SDC 04:56 → ICCU 13:09 → 4E 13:09 → SDC 14:00 → ICCU 14:06 → 4E 05-12 02:29 → ICCU 05-12 03:16 → 4E 05-17 15:09
PROVIDERS: Internal Medicine; Orthopaedic Surgery; Student in an Organized Health Care Education/Training Program; ADMIT Internal Medicine; ATTEND Internal Medicine
PROC: 0SPD09Z Removal of Liner from Left Knee Joint, Open Approach (ICD-10-PCS; principal; 2024-05-10)
PROC: 0SUW09Z Supplement Left Knee Joint, Tibial Surface with Liner, Open Approach (ICD-10-PCS; 2024-05-10)
PROC: 3E0T3BZ Introduction of Anesthetic Agent into Peripheral Nerves and Plexi, Percutaneous Approach (ICD-10-PCS; 2024-05-10)
DX: A41.51 Sepsis due to Escherichia coli [E. coli] (principal); E44.1 Mild protein-calorie malnutrition; T84.54XA Infection and inflammatory reaction due to internal left knee prosthesis, initial encounter; N39.0 Urinary tract infection, site not specified; Z68.41 Body mass index [BMI] 40.0-44.9, adult; Z96.652 Presence of left artificial knee joint; I10 Essential (primary) hypertension; B96.20 Unspecified Escherichia coli [E. coli] as the cause of diseases classified elsewhere; E89.0 Postprocedural hypothyroidism; M79.7 Fibromyalgia; R89.9 Unspecified abnormal finding in specimens from other organs, systems and tissues; K21.9 Gastro-esophageal reflux disease without esophagitis; R73.9 Hyperglycemia, unspecified; Z82.49 Family history of ischemic heart disease and other diseases of the circulatory system; Z98.890 Other specified postprocedural states; Z79.899 Other long term (current) drug therapy; Y83.8 Other surgical procedures as the cause of abnormal reaction of the patient, or of later complication, without mention of misadventure at the time of the procedure; Y92.89 Other specified places as the place of occurrence of the external cause

== ENCOUNTER → 2024-05-27 | Outpatient (CLI) | payer MEDICARE, OTHER ==
[~2024-05-27] MED LIST changes: +ASPIRIN ADULT L81 M2 PO; +Bactroban Oint22 GM T; +LEVOFLOXACIN750 M2 PO; +MECLIZINE HCL25 M2 PO
== END | disposition home or self-care (01) ==
LOC: EDSTATUS 03:18 → ORTHO 03:20 → RAD 17:18
PROVIDERS: ATTEND Orthopaedic Surgery
DX: T84.093A Other mechanical complication of internal left knee prosthesis, initial encounter (principal); X58.XXXA Exposure to other specified factors, initial encounter

== ENCOUNTER → 2024-09-02 | Outpatient (CLI) | payer MEDICARE, OTHER | END | disposition home or self-care (01) | LOC: ORTHO 01:21 | PROVIDERS: ATTEND Orthopaedic Surgery | DX: T84.093A Other mechanical complication of internal left knee prosthesis, initial encounter (principal); Y82.8 Other medical devices associated with adverse incidents ==

== ENCOUNTER → 2025-03-28 | Outpatient (CLI) | payer MEDICARE, OTHER | END | disposition home or self-care (01) | LOC: US 13:12 | PROVIDERS: ATTEND Nurse Practitioner | DX: R09.89 Other specified symptoms and signs involving the circulatory and respiratory systems (principal) ==